=== PATIENT | male | born 1995 | race Caucasian/White ===

== ENCOUNTER 2019-11-09 02:25 | Emergency (ER) | payer SELFPAY ==
[2019-11-09 02:25] VITALS: BP 157/88; PULSE 89; RESP 20; TEMP 37; O2SAT 97
[2019-11-09 02:57] LABS: Basophils Absolute Auto 0.09 K/mm3 (0.00-0.10); Eosinophils Absolute Auto 0.07 K/mm3 (0.02-0.50); Eosinophils Percent Auto 0.8 % (1.0-6.0); Hematocrit 43.5 % (40.0-54.0); Hemoglobin 15.2 g/dL (14.0-18.0); Immature Granulocyte Absolute 0.03 K/mm3 (0.00-0.00); Immature Granulocyte Percent A 0.3 % (0.0-0.0); Lymphocytes Absolute Auto 2.88 K/mm3 (1.10-4.50); Lymphocytes Percent Auto 31.8 % (18.0-42.0); Mean Corpuscular HGB Conc 34.9 g/dL (32.0-36.0); Mean Corpuscular Hemoglobin 31.3 pg (27.0-31.0); Mean Corpuscular Volume 89.5 fL (78.0-102.0); Mean Platelet Volume 11.6 fl (8.7-11.0); Monocytes Absolute Auto 0.89 K/mm3 (0.10-0.90); Monocytes Percent Auto 9.8 % (2.0-11.0); Neutrophils Absolute Auto 5.1 K/mm3 (1.7-7.2); Neutrophils Percent Auto 56.3 % (50.0-70.0); Platelet Count Result 275 K/mm3 (150-420); Red Blood Count 4.86 M/mm3 (4.70-6.10); Red Cell Distribution Width 12.2 % (11.6-14.4); White Blood Count 9.1 K/mm3 (4.8-10.8)
[2019-11-09 03:00] LABS: Add Urine Microscopic? YES; Appearance Urine Clear (Clear); Bilirubin Urine Negative (Negative); Blood Urine Negative (Negative); Color Urine Yellow (Yellow); Glucose Urine UA Negative (Negative); Ketones Urine Negative (Negative); Leukocyte Esterase Ur Trace LEU/UL (Negative); Nitrate Urine Negative (Negative); Protein Urine Negative (Negative); Specific Grav Ur <= 1.005 (1.010-1.020); Urobilinogen Urine 0.2 mg/dL (0.2-1.0)
[2019-11-09 03:05] LABS: Bacteria Urine None seen /hpf; RBC Urine 0-2 /hpf (0-2); Squamous Epithelial Cell Urine None seen /hpf (Few)
[2019-11-09 03:06] LABS: Amphetamine Screen Urine Negative (Negative); Barbiturate Screen Urine Negative (Negative); Benzodiazepines Screen Urine Negative (Negative); Cannabinoid Screen Urine Positive (Negative); Cocaine Screen Urine Negative (Negative); Methadone Screen Urine Negative (Negative); Opiate Screen Urine Negative (Negative); Phencyclidine Screen Urine Negative (Negative)
[2019-11-09 03:13] LABS: Acetaminophen 0 ug/mL (10-30); Alanine Aminotransferase 18 U/L (16-63); Albumin Level 4.6 g/dL (3.4-5.0); Alkaline Phosphatase 87 U/L (46-116); Anion Gap 16.5 mmol/L (7-16); Aspartate Amino Transferase 15 U/L (15-37); Bilirubin,Total 1.9 mg/dL (0.00-1.00); Blood Urea Nitrogen 12 mg/dL (7-18); Calcium 9.3 mg/dL (8.5-10.1); Carbon Dioxide 22 mmol/L (21-32); Chloride 105 mmol/L (98-108); Estimated CRCL calculation 68 ml/min; Estimated Glomerular Filt Rate > 60; Ethanol < 3 mg/dL (0-6); Glucose 106 mg/dL (70-99); Osmolality Calculated 289 mOsm/kg (285-295); Potassium 3.5 mmol/L (3.5-5.1); Salicylate < 0.3 mg/dL (2.8-20.0); Sodium 140 mmol/L (136-145); Total Protein 8.5 g/dL (6.4-8.2)
--- NOTE | 2019-11-09 03:43 | PC.NURSE ---
pt request drink of water. pt able to answer correct month. states day as , states year as 1996. repeated questions. pt states i thought it was 1996 .
--- NOTE | 2019-11-09 03:45 | PCDIET ---
water given as requested.
--- NOTE | 2019-11-09 03:55 | ED.AMS ---
HPI - Altered Mental Status General Chief Complaint: Altered Mental Status Stated Complaint: evaluation Source: patient and RN notes reviewed Mode of arrival: ambulatory Limitations: no limitations History of Present Illness HPI narrative: patient and family present for unusual behavior. Patient has been staring off into space and then will say gibberish per his cousin. He does use cannabis on a regular basis but did not buy it from a store. Bought it from some girl . Patient's cousin says that he has a history of multiple personality disorder but has not had any problems with that for years. He is not answering questions appropriately. See nurse's notes for examples. He appears calm, but he is very concerned about the fact that someone gave him possible tainted drugs. MD complaint: confusion Onset (ago): hour(s) (6-10) Timing confirmed by: family member Severity: moderate Consistency of symptoms: waxing and waning Context: drug abuse (Cannabis) Associated symptoms: denies other symptoms Related Data Home Medications Medication Instructions Recorded Confirmed No Home Medications 11/09/19 11/09/19 Review of Systems Constitutional: Constitutional: Reports no additional constitutional complaints ENT: Reports system reviewed and no additional complaints, except as documented Cardiovascular: Cardiovascular: Reports no additional cardiovascular complaints Respiratory: Respiratory: Reports no additional respiratory complaints Gastrointestinal: Gastrointestinal: Reports no additional gastrointestinal complaints Psychiatric: Psychiatric: Reports anxiety, Denies homicidal ideation and Denies suicidal ideation PMFSH Past Medical History Medical History (Updated 11/09/19 @ 04:10 by Bryn Peraza MD) Multiple personality disorder Surgical History Surgical History (Updated 11/09/19 @ 04:10 by Bryn Peraza MD) No history of previous surgery Social History Social History (Updated 11/09/19 @ 04:11 by Bryn Peraza MD) Substance use: current Other substance usage details: Cannabis Exam Const: General: healthy appearing, no acute distress and alert Nutritional Appearance: well nourished and thin Orientation/consciousness: patient oriented x3 HENMT: Head: normal to inspection Ears: external ears normal Face and sinus: normal facial exam Eyes: Conjunctivae: conjunctivae normal Pupils: Equal, round and reactive pupils present EOM: EOMs intact bilaterally Neck: Neck: normal visual inspection Resp: Effort & Inspection: normal respiratory effort Auscultation: clear to auscultation bilaterally Cardio: Rate: regular rate Rhythm: regular rhythm GI: GI Palp: Yes Soft to palpation and No Tenderness to palpation present (GI) Auscultation: normal bowel sounds Back/Spine/Pelvis: Cervical Spine: cervical ROM normal Thoracic/Lumbar Spine: thoraco-lumbar ROM normal Skin: General skin exam: normal color Rashes: no rashes Neuro: General: patient oriented x3, moves all extremities and no focal motor deficits Speech: normal speech Extrem: General: normal to inspection and no clubbing, cyanosis or edema Psych: Appearance: grossly normal and well kempt Attitude: cooperative Thought content: Yes Normal thought content present Course Vital Signs Vital signs: Vital Signs Temperature 37.0 C 11/09/19 02:25 Pulse Rate 89 11/09/19 02:25 Respiratory Rate 20 11/09/19 02:25 Blood Pressure 157/88 H 11/09/19 02:25 Pulse Oximetry 97 11/09/19 02:25 Temperature 37.1 C 11/09/19 04:12 Pulse Rate 84 11/09/19 04:12 Respiratory Rate 20 11/09/19 04:12 Blood Pressure 175/84 H 11/09/19 04:12 Pulse Oximetry 97 11/09/19 04:12 MDM - Altered Mental Status Lab Data Result diagrams: 11/09/19 02:53 11/09/19 02:53 Labs: Lab Results 11/09/19 11/09/19 11/09/19 Range/Units 02:44 02:44 02:53 WBC 9.1 (4.8-10.8) K/mm3 RBC 4.86 (4.70-6.10
[2019-11-09 04:12] VITALS: BP 175/84; PULSE 84; RESP 20; TEMP 37.1; O2SAT 97
== END 2019-11-09 04:14 | disposition home or self-care (01) ==
PROVIDERS: Emergency Provider Emergency Medicine
DX: F12.921 Cannabis use, unspecified with intoxication delirium (principal)
CPT/HCPCS: 36415; 80053; 80307; 81001; 85025; 99282; 99283